=== PATIENT | female | born 1980 | race Caucasian/White ===

== ENCOUNTER → 2016-08-25 | Outpatient (CLI) | payer BC ==
--- NOTE | 2016-08-25 11:06 | US ---
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 Dysphagia, thyroidmegaly GLAND SIZE: Right Lobe: 5.9 x 1.6 x 2.0 cm Overall Parenchyma: homogenous Left Lobe: 5.9 x 1.7 x 1.8 cm Overall Parenchyma: homogeneous Isthmus Thickness: 0.3 cm NODULES RIGHT: # of nodules measured on right: 1. 0.6 X 0.4 x 0.5 cm cystic nodule at the mid pole with well-defined margins; . This nodule is wi merlene than tall and shows no intranodular vascularity. Prior size: no prior exam LEFT: # of nodules measured on left: 1. 0.9 X 0.5 x 0.8 cm cystic nodule at the mid pole with well-defined margins; . This nodule is wi merlene than tall and shows no intranodular vascularity. Prior size: no prior exam ISTHMUS: # of nodules measured in the isthmus: 0 Impression: Bilateral neck scanned, no abnormal lymphadenopathy noted. Multiple cystic areas noted bi laterally, largest nodule measured. Enlarged thyroid gland
--- NOTE | 2016-08-25 12:16 | FL ---
ESOPHOGRAM. HISTORY: Dysphagia Esophagram was performed per the air contrast technique. The patient swallowed barium and effervesce nt crystals without difficulty or delay. Esophageal peristalsis and motility appear to be within normal limits. There is no evidence for filling defect, mass or diverticulum. No hiatal hernia seen. Subsequently single contrast cervical esophagram was performed which fails demonstrate evidence for a spiration penetration or mass. IMPRESSION: Unremarkable study.
== END | disposition home or self-care (01) ==
LOC: RADUSWWP 10:07
PROVIDERS: ATTEND Otolaryngology
DX: E04.9 Nontoxic goiter, unspecified (principal); E04.1 Nontoxic single thyroid nodule; R13.10 Dysphagia, unspecified
CPT/HCPCS: 36415; 74220; 76536; 84443; 86376; 86800